=== PATIENT | male | born 1990 | race Two or more races ===

== ENCOUNTER 2019-08-09 10:33 | Emergency (ER) | payer SELFPAY ==
[~2019-08-09] VITALS: Ht 175.3 cm; Wt 86.0 kg
[2019-08-09 10:39] VITALS: BP 135/90
--- NOTE | 2019-08-09 10:46 | PHYS DOC ---
Adult General Chief Complaint Chief Complaint: BACK PAIN OR INJURY HPI HPI Patient is a 29 year old male who states he was lifting a heavy drill at work and injured his R low back. He feels the pain around into his R and into his R leg. He is ambulatory without difficulty. He denies any saddle anesthesia or loss of bowel or bladder dysfunction. Review of Systems Review of Systems Constitutional: Denies fever or chills HENT: Denies nasal congestion or sore throat Respiratory: Denies cough or shortness of breath Cardiovascular: Denies chest pain GI: Denies nausea, vomiting, bloody stools or diarrhea. Reports abd tenderness. : Denies dysuria or hematuria Musculoskeletal: Reports back pain and R groin pain Integument: Denies rash or skin lesions Neurologic: Denies headache, focal weakness or sensory changes Endocrine: Denies polyuria or polydipsia All other systems were reviewed and found to be within normal limits, except as documented in this note. Allergies Allergies Allergies Coded Allergies Type Severity Reaction Last Updated Verified No Known Drug Allergies 08/09/19 No Physical Exam Physical Exam Constitutional: Well developed, well nourished, no acute distress, non-toxic appearance. HENT: Normocephalic, atraumatic, bilateral external ears normal, oropharynx moist, no oral exudates, nose normal. Neck: Normal range of motion, no tenderness, supple, no stridor. Cardiovascular:Heart rate regular rhythm, no murmur Lungs & Thorax: Bilateral breath sounds clear to auscultation Abdomen: Bowel sounds normal, soft, no masses, no pulsatile masses. Pt has mild tenderness along R lateral abd wall with movement but no pain with deep palpation. Skin: Warm, dry, no erythema, no rash. Back: Lumbar perispinous tenderness with no midline vertebral point tenderness. Extremities: No cyanosis, no clubbing, ROM intact, no edema. R groin and leg tender. No hernia palpated or noted with valsalva. Neurologic: Alert and oriented X 3, normal motor function, normal sensory function, no focal deficits noted. Psychologic: Affect normal, judgement normal, mood normal. Current Patient Data Vital Signs Vital Signs Date Time Temp Pulse Resp B/P (MAP) Pulse Ox O2 Delivery O2 Flow Rate FiO2 08/09/19 10:39 98.1 67 18 135/90 (105) 99 Room Air 98.1 EKG EKG [] Radiology/Procedures Radiology/Procedures [] Course & Med Decision Making Course & Med Decision Making Discussed with pt that no imaging needed at this time with no midline pain and no neuro deficits. His exam and mechanism of injury consistant with lumbar strain, abd wall strain and sciatica. Pt recommended to avoid heavy lifting and to ice/heat PRN. Pt to f/u with PCP, resources given, and discussed that he may need imaging such as MRI if symptoms persist. Pt ambulatory out of ER without difficulty. Dragon Disclaimer Dragon Disclaimer This electronic medical record was generated, in whole or in part, using a voice recognition dictation system. Departure Departure Impression: Primary Impression: Lumbar strain Additional Impressions: Abdominal wall strain Sciatica Disposition: HOME, SELF-CARE Condition: STABLE Referrals: NO PCP (PCP) Patient Instructions: Low Back Strain with [facility], Sciatica, [id number] Additional Instructions: Ice/Heat therapy and no heavy lifting x 1 week Scripts Naproxen (NAPROSYN) 500 Mg Tablet 500 MG PO BID PRN for PAIN, #20 TAB Prov: ERASTO BONNER 08/09/19 Cyclobenzaprine Hcl (CYCLOBENZAPRINE HCL) 10 Mg Tablet 1 TAB PO TID PRN for MUSCLE PAIN, #30 TAB Prov: ERASTO BONNER 08/09/19 Problem Qualifiers ERASTO BONNER Aug 09, 2019 10:46
[2019-08-09] MEDS ORDERED: NAPR-683 PO (10:50)
[2019-08-09] MEDS ORDERED: CYCL10TA2 PO (10:50)
== END 2019-08-09 10:58 | disposition home or self-care (01) ==
LOC: ER 10:33
DX: S39.011A Strain of muscle, fascia and tendon of abdomen, initial encounter (principal); S39.012A Strain of muscle, fascia and tendon of lower back, initial encounter; M79.604 Pain in right leg; R10.31 Right lower quadrant pain; X50.0XXA Overexertion from strenuous movement or load, initial encounter; Y93.89 Activity, other specified; Y92.89 Other specified places as the place of occurrence of the external cause; Y99.8 Other external cause status
CPT/HCPCS: 99283